=== PATIENT | male | born 1965 | race Caucasian/White ===

== ENCOUNTER 2023-09-04 08:00 | Outpatient (CLI) | payer BC, SELFPAY ==
[2023-09-04 19:17] LABS: Hematocrit 44.8 % (42.0-52.0); Hemoglobin 14.2 g/dL (14.0-18.0); Mean Corpuscular HGB Conc 31.7 g/dl (32-36); Mean Corpuscular Hemoglobin 30.3 pg (26-34); Mean Corpuscular Volume 95.5 fl (80-100); Mean Platelet Volume 9.5 fl (7.4-10.4); Platelet Count Result 222 k/mm3 (150-375); Red Blood Count 4.69 M/mm3 (4.6-6.20); Red Cell Distribution Width 12.8 % (11.5-14.5); White Blood Count 6.5 K/mm3 (4.5-10.0)
[2023-09-04 19:25] LABS: Alanine Aminotransferase 21 U/L (6-50); Albumin Level 4.3 g/dL (3.5-5.1); Alkaline Phosphatase 79 U/L (38-126); Anion Gap 7 mmol/L (8-16); Aspartate Amino Transferase 42 U/L (17-59); Blood Urea Nitrogen 13 mg/dL (9-20); Calcium 8.9 mg/dL (8.4-10.2); Carbon Dioxide 30 mmol/L (22-30); Chloride 103 mmol/L (98-107); Cholesterol 210 mg/dL (0-200); Estimated Glomerular Filt Rate > 60; Glucose 91 mg/dL (65-110); HDL Direct 43 mg/dL; Potassium 4.3 mmol/L (3.4-5.0); Sodium 140 mmol/L (137-145); Triglycerides 137 mg/dL (<150)
[2023-09-04 19:36] LABS: LDL Cholesterol Direct 122 mg/dL
[2023-09-04 19:41] LABS: Iron 85 ug/dL (49-181)
[2023-09-04 19:50] LABS: Percent Iron Saturation 26 % (20-50)
[2023-09-04 19:55] LABS: Prostate Specific Antigen 0.9 ng/mL (< OR = 4.0)
== END 2023-09-04 08:01 | disposition home or self-care (01) ==
PROVIDERS: PCP Family Medicine; Visit Provider Family Medicine
DX: Z00.00 Encounter for general adult medical examination without abnormal findings (principal); Z12.5 Encounter for screening for malignant neoplasm of prostate; G25.81 Restless legs syndrome; Z87.11 Personal history of peptic ulcer disease
CPT/HCPCS: 36415; 80053; 80061; 83540; 83550; 84153; 85027; G0103